=== PATIENT | female | born 1990 | race Caucasian/White ===

== ENCOUNTER 2023-09-19 09:33 | Emergency (ER) | payer OTHER ==
[~2023-09-19] VITALS: Ht 160 cm; Wt 82.1 kg
[2023-09-19 09:39] VITALS: BP 132/68; TEMP 98.7; O2SAT 100
[2023-09-19] MEDS ORDERED: IBUP-1955 PO (10:08)
== END 2023-09-19 11:09 | disposition home or self-care (01) ==
LOC: ER 09:33
DX: M79.672 Pain in left foot (principal); Z60.2 Problems related to living alone
CPT/HCPCS: 73650-TC

== ENCOUNTER 2024-03-12 18:13 | Emergency (ER) | payer OTHER ==
[~2024-03-12] VITALS: Ht 160 cm; Wt 81.6 kg
[~2024-03-12 18:13] MED LIST: IBUP-1955 PO
[2024-03-12 18:46] VITALS: BP 130/77; TEMP 98.7; O2SAT 99
== END 2024-03-12 20:29 | disposition home or self-care (01) ==
LOC: ER 18:16
DX: B34.9 Viral infection, unspecified (principal); R50.9 Fever, unspecified; R05.9 Cough, unspecified; J02.9 Acute pharyngitis, unspecified; Z60.2 Problems related to living alone
CPT/HCPCS: 71045-TC